=== PATIENT | male | born 1990 | race African-American/Black ===

== ENCOUNTER 2021-07-07 01:05 | Emergency (ER) | payer OTHER ==
[~2021-07-07] VITALS: Ht 182.9 cm; Wt 90.7 kg
[2021-07-07 01:43] VITALS: BP 132/89
--- NOTE | 2021-07-07 01:45 | NUR ---
21BIBS, WALKED IN TO ER. TO ER BED 18. AAOX4. NOT IN RESP DISTRESS. AMBULATORY. CAME IN FOR SUICIDAL IDEATION - PLANS TO HARM HIMSELF WITH ANY SPECIFIC PLAN. PT IS SEEKING VOLUNTARY ADMISSION. PT IS GOWNED, BELONGINGS PLACED IN LOCKER AND SITTER WITHIN SIGHT. MD AT BEDSIDE FOR EVAL. URINE AND COVID SWAB COLLECTED. WILL CONTINUE TO MONITOR
--- NOTE | 2021-07-07 01:46 | NUR ---
PERFORMANCE IMPROVEMENT ANALYST AT PT'S BEDSIDE
--- NOTE | 2021-07-07 01:46 | NUR ---
COVID ANTIGEN AND URINE COLLECTED AND SENT TO LAB
[2021-07-07 02:02] LABS: BASOPHILS % (AUTO) 0.4 % (0.0-2.0); EOSINOPHILS % (AUTO) 0.2 % (0.0-6.0); HEMATOCRIT 43 % (39-51); LYMPHOCYTES # (AUTO) 1.8 K/uL (0.8-4.8); LYMPHOCYTES % (AUTO) 19.5 % (20.0-44.0); MEAN CORPUSCULAR HGB CONC 35 g/dl (31.0-36.0); MEAN CORPUSCULAR VOLUME 97 fL (80-96); MONOCYTES # (AUTO) 0.9 K/uL (0.1-1.30); MONOCYTES % (AUTO) 9.2 % (2.0-12.0); NEUTROPHILS # (AUTO) 6.7 K/uL (1.8-8.9); NEUTROPHILS % (AUTO) 70.7 % (43.0-81.0); PLATELET COUNT (AUTO) 292 K/uL (150-450); RED BLOOD CELL COUNT(AUTO) 4.48 MIL/uL (4.5-6.0); WHITE BLOOD COUNT (AUTO) 9.4 K/uL (4.3-11.0)
[2021-07-07 02:07] LABS: BILIRUBIN,URINE NEGATIVE (NEGATIVE); LEUKOCYTE ESTERASE ,URINE NEGATIVE (NEGATIVE); NITRITE, URINE NEGATIVE (NEGATIVE); PROTEIN,URINE NEGATIVE (NEGATIVE); UGLUCOSE NEGATIVE (NEGATIVE); UROBILINOGEN,URINE 0.2 EU/dL (0.2)
[2021-07-07 02:08] LABS: COLOR,URINE LIGHT YELLOW (YELLOW)
[2021-07-07 02:11] LABS: CALCIUM, SERUM 8.5 mg/dL (8.5-10.1); CARBON DIOXIDE 31 mmol/L (21-32); CHLORIDE 103 mmol/L (98-107); CREATININE 0.9 mg/dL (0.6-1.3); GLUCOSE 105 mg/dL (74-106); POTASSIUM 3.8 mmol/L (3.5-5.1); SODIUM SERUM 140 mmol/L (136-145); UREA NITROGEN, BLOOD 9 mg/dL (7-18)
[2021-07-07 02:16] LABS: ALANINE AMINOTRANSFERASE 45 U/L (12-78); ALBUMIN 4.1 g/dL (3.4-5.0); ALCOHOL, BLOOD < 3 mg/dL (0-0); ALKALINE PHOSPHATASE 68 U/L (46-116); ASPARTATE AMINOTRANSFERASE 34 U/L (15-37); BILIRUBIN,DIRECT 0.1 mg/dL (0.0-0.2); BILIRUBIN,TOTAL 0.4 mg/dL (0.2-1.0); TOTAL PROTEIN, SERUM 7.9 g/dL (6.4-8.2)
[2021-07-07 02:22] LABS: ACETAMINOPHEN 0 ug/ml (10-30)
--- NOTE | 2021-07-07 06:12 | NUR ---
FAXED CLINICALS TO [facility]
--- NOTE | 2021-07-07 10:53 | NUR ---
CALLED [facility] (SPOKE WITH SAAD) TO FOLLOW UP WITH PT ADMISSION AND WAS NOTIFIED THAT THE PT IS STILL AWAITING FEEDBACK FROM FIELD APPLICATIONS SPECIALIST FOR A BED.
--- NOTE | 2021-07-07 12:27 | NUR ---
ACEPTED AT [facility] UNDER DR AGUIRRE CALL NURSING SUP FOR REPORT. [phone] ETA 1300. [facility].
--- NOTE | 2021-07-07 13:08 | NUR ---
[facility]IA [facility]. ACCEPTED BY DR CEVALLOS. STABLE CONDITION.
== END 2021-07-07 13:12 ==
LOC: ER 01:08
DX: R45.851 Suicidal ideations (principal); F12.90 Cannabis use, unspecified, uncomplicated; Z20.822 Contact with and (suspected) exposure to COVID-19; Z59.00 Homelessness unspecified
CPT/HCPCS: 36415; 80048; 80076; 80143; 80307; 80320; 81003; 85025; 87426; 99285; C9803; G0480

== ENCOUNTER 2021-07-19 20:20 | Emergency (ER) | payer OTHER ==
[~2021-07-19] VITALS: Ht 182.9 cm; Wt 90.7 kg
--- NOTE | 2021-07-19 20:54 | NUR ---
[facility] FOR S/I WITH PLAN TO OD ON PILLS. SEEKING VOLUNTARY ADMISSION TO [facility]. PATIENT ALERT AND ORIENTED X3 AMBULATORY WITH NON LABORED BREATHING. IN BED 18 BELONGINGS TAKEN AND PUT IN THE LOCKER.
[2021-07-19 21:15] LABS: BASOPHILS % (AUTO) 0.4 % (0.0-2.0); EOSINOPHILS % (AUTO) 0.5 % (0.0-6.0); HEMATOCRIT 43 % (39-51); HEMOGLOBIN 14.4 g/dL (13.5-17.5); LYMPHOCYTES # (AUTO) 1.5 K/uL (0.8-4.8); MEAN CORPUSCULAR HGB CONC 34 g/dl (31.0-36.0); MEAN CORPUSCULAR VOLUME 98 fL (80-96); MONOCYTES # (AUTO) 0.9 K/uL (0.1-1.30); MONOCYTES % (AUTO) 9.4 % (2.0-12.0); NEUTROPHILS # (AUTO) 7.1 K/uL (1.8-8.9); NEUTROPHILS % (AUTO) 73.7 % (43.0-81.0); PLATELET COUNT (AUTO) 227 K/uL (150-450); RED BLOOD CELL COUNT(AUTO) 4.35 MIL/uL (4.5-6.0); WHITE BLOOD COUNT (AUTO) 9.7 K/uL (4.3-11.0)
[2021-07-19 21:23] LABS: BILIRUBIN,URINE NEGATIVE (NEGATIVE); COLOR,URINE YELLOW (YELLOW); LEUKOCYTE ESTERASE ,URINE NEGATIVE (NEGATIVE); NITRITE, URINE NEGATIVE (NEGATIVE); PROTEIN,URINE NEGATIVE (NEGATIVE); UGLUCOSE NEGATIVE (NEGATIVE); UROBILINOGEN,URINE 0.2 EU/dL (0.2)
[2021-07-19 21:33] LABS: CALCIUM, SERUM 8.4 mg/dL (8.5-10.1); CARBON DIOXIDE 30 mmol/L (21-32); CHLORIDE 106 mmol/L (98-107); CREATININE 1.1 mg/dL (0.6-1.3); GLUCOSE 96 mg/dL (74-106); POTASSIUM 3.9 mmol/L (3.5-5.1); SODIUM SERUM 140 mmol/L (136-145); UREA NITROGEN, BLOOD 14 mg/dL (7-18)
[2021-07-19 21:38] LABS: ALANINE AMINOTRANSFERASE 25 U/L (12-78); ALBUMIN 3.7 g/dL (3.4-5.0); ALCOHOL, BLOOD < 3 mg/dL (0-0); ALKALINE PHOSPHATASE 59 U/L (46-116); ASPARTATE AMINOTRANSFERASE 16 U/L (15-37); BILIRUBIN,DIRECT 0.1 mg/dL (0.0-0.2); BILIRUBIN,TOTAL 0.2 mg/dL (0.2-1.0); TOTAL PROTEIN, SERUM 7.1 g/dL (6.4-8.2)
[2021-07-19 21:55] LABS: ACETAMINOPHEN 0 ug/ml (10-30)
--- NOTE | 2021-07-19 22:12 | NUR ---
[employer] AT BEDSIDE
--- NOTE | 2021-07-19 22:12 | NUR ---
[employer] AT BEDSIDE
--- NOTE | 2021-07-19 22:13 | NUR ---
COVID SWAB COLLECTED SENT TO LAB
--- NOTE | 2021-07-20 01:24 | NUR ---
CLINICALS FAXED TO [facility]
--- NOTE | 2021-07-20 03:12 | NUR ---
S/W ART FROM [facility] [phone] ACCEPTED , DR COUCH GIVE REPORT [phone]
--- NOTE | 2021-07-20 03:17 | NUR ---
REPORT GIVEN TO AUDREY
--- NOTE | 2021-07-20 03:22 | NUR ---
[facility] ETA 40-45MIN
[2021-07-20 03:57] VITALS: BP 148/80
--- NOTE | 2021-07-20 04:02 | NUR ---
[facility] 285 AT BEDSIDE FOR PT TRANSPORT TO [facility]. PT IS IN STABLE CONDITION FOR TRANSPORT. NAD NOTED. PT IS AMBULATORY ON STEADY GAIT. ALL BELONGINGS GIVEN BACK
== END 2021-07-20 04:02 ==
LOC: ER 20:29
DX: R45.851 Suicidal ideations (principal); Z59.00 Homelessness unspecified; Z20.822 Contact with and (suspected) exposure to COVID-19
CPT/HCPCS: 36415; 80048; 80076; 80143; 80307; 80320; 81003; 85025; 87426; 99285; C9803; G0480

== ENCOUNTER 2021-08-21 09:19 | Emergency (ER) | payer OTHER ==
[~2021-08-21] VITALS: Ht 182.9 cm; Wt 86.2 kg
--- NOTE | 2021-08-21 09:19 | NUR ---
PT BIB SELF C/O SI "OD ON PILLSS" REQUESTING VOLUNTARY PSYCH ADMISSION. PT IS AAOX4, NOT IN RESPIRATORY DISTRESS, V/S STABLE, KEPT RESTED AND COMFORTABLE. WILL CONTINUE TO MONITOR.
--- NOTE | 2021-08-21 09:28 | NUR ---
PATIENT WANDED BY SECURITY
--- NOTE | 2021-08-21 09:28 | NUR ---
URINE SPECIMEN COLLECTED AND SENT TO LAB.
[2021-08-21 09:48] LABS: CALCIUM, SERUM 9.4 mg/dL (8.5-10.1); CARBON DIOXIDE 32 mmol/L (21-32); CHLORIDE 102 mmol/L (98-107); CREATININE 1.1 mg/dL (0.6-1.3); GLUCOSE 99 mg/dL (74-106); SODIUM SERUM 140 mmol/L (136-145); UREA NITROGEN, BLOOD 7 mg/dL (7-18)
[2021-08-21 09:54] LABS: ALANINE AMINOTRANSFERASE 22 U/L (12-78); ALBUMIN 4.3 g/dL (3.4-5.0); ALCOHOL, BLOOD < 3 mg/dL (0-0); ALKALINE PHOSPHATASE 73 U/L (46-116); ASPARTATE AMINOTRANSFERASE 27 U/L (15-37); BILIRUBIN,DIRECT 0.1 mg/dL (0.0-0.2); BILIRUBIN,TOTAL 0.3 mg/dL (0.2-1.0); TOTAL PROTEIN, SERUM 8.7 g/dL (6.4-8.2)
[2021-08-21 09:55] LABS: ACETAMINOPHEN < 10 ug/ml (10-30)
[2021-08-21 09:56] LABS: BASOPHILS % (AUTO) 0.5 % (0.0-2.0); EOSINOPHILS % (AUTO) 0.5 % (0.0-6.0); HEMATOCRIT 49 % (39-51); HEMOGLOBIN 16.7 g/dL (13.5-17.5); LYMPHOCYTES # (AUTO) 1.3 K/uL (0.8-4.8); LYMPHOCYTES % (AUTO) 19.9 % (20.0-44.0); MEAN CORPUSCULAR HGB CONC 34 g/dl (31.0-36.0); MEAN CORPUSCULAR VOLUME 97 fL (80-96); MONOCYTES # (AUTO) 0.5 K/uL (0.1-1.30); MONOCYTES % (AUTO) 8.6 % (2.0-12.0); NEUTROPHILS # (AUTO) 4.5 K/uL (1.8-8.9); NEUTROPHILS % (AUTO) 70.5 % (43.0-81.0); PLATELET COUNT (AUTO) 244 K/uL (150-450); RED BLOOD CELL COUNT(AUTO) 5.02 MIL/uL (4.5-6.0); WHITE BLOOD COUNT (AUTO) 6.4 K/uL (4.3-11.0)
[2021-08-21] MEDS ORDERED: QUET200T PO (10:06)
[2021-08-21] MEDS ORDERED: FLUO20CA42 PO (10:06)
[2021-08-21] MEDS ORDERED: GABA-532 PO (10:06)
[2021-08-21 10:12] LABS: BILIRUBIN,URINE SMALL (NEGATIVE); COLOR,URINE YELLOW (YELLOW); LEUKOCYTE ESTERASE ,URINE NEGATIVE (NEGATIVE); NITRITE, URINE NEGATIVE (NEGATIVE); PROTEIN,URINE TRACE mg/dl (NEGATIVE); UGLUCOSE NEGATIVE (NEGATIVE); UROBILINOGEN,URINE 0.2 EU/dL (0.2)
[2021-08-21 10:37] LABS: BACTERIA,URINE Rare /HPF (None Seen); RBC,URINE 0-2 /HPF (0-2); WBC,URINE 0-2 /HPF (0-3)
[2021-08-21 10:38] LABS: CALCIUM OXALATE CRYSTALS,UR Rare /HPF (None Seen); SQUAMOUS EPITHELIAL CELL,UR Rare /HPF (None Seen)
--- NOTE | 2021-08-21 11:12 | NUR ---
Faxed clinicals to [facility], awaiting for COVID results, will fax over once ready. Clinicals were also faxed to [facility] [fax: [phone]].
[2021-08-21] MEDS ORDERED: LORAZEPAM 1 MG TABLET ONE (11:29)
[2021-08-21] MEDS ORDERED: LORAZEPAM 1 MG TABLET PO ONE (11:30)
--- NOTE | 2021-08-21 11:57 | NUR ---
LUNCH TRAY PROVIDED. TOLERATED WELL
--- NOTE | 2021-08-21 12:07 | NUR ---
FOLLOWED-UP WITH [facility], AWAITING FOR FEEDBACK.
--- NOTE | 2021-08-21 12:41 | NUR ---
RAPID COVID SWAB DONE AND SENT TO LAB
--- NOTE | 2021-08-21 14:09 | NUR ---
FAXED COVID RESULTS TO [facility].
--- NOTE | 2021-08-21 15:04 | NUR ---
PT ACCEPTED AT [address] # FOR REPORT: [phone]
--- NOTE | 2021-08-21 15:23 | NUR ---
PT ACCEPTED TO [facility] UNDER DR. ANN PLEASE CALL [phone] FOR REPORT ETA [phone]
--- NOTE | 2021-08-21 16:07 | NUR ---
CALLED [facility] AND SPOKE TO LEANDRA TO CANCEL PATIENT'S TRANSFER.
--- NOTE | 2021-08-21 16:08 | NUR ---
CALLED [facility] SPOKE TO DEJUAN. REPORT GIVEN. 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
--- NOTE | 2021-08-21 16:16 | NUR ---
[facility] AT BEDSIDE FOR MOLDING UTILITY WORKER.
[2021-08-21 16:17] VITALS: BP 120/71
== END 2021-08-21 16:20 ==
LOC: ER 09:25
DX: R45.851 Suicidal ideations (principal); Z59.00 Homelessness unspecified; Z20.822 Contact with and (suspected) exposure to COVID-19
CPT/HCPCS: 36415; 80048; 80076; 80143; 80307; 80320; 81001; 85025; 87426; 99285; C9803; G0480